=== PATIENT | male | born 1940 | race Caucasian/White ===

== ENCOUNTER 2023-04-22 13:34 | Outpatient (CLI) | payer OTHER ==
[2023-04-22 15:10] LABS: #Basophils 0.1 10x3/uL (0.0-0.2); #Eosinphils 0.3 10x3/uL (0.0-0.5); #Monocytes 0.6 10x3/uL (0.0-1.1); #Neutrophils 3.7 10x3/uL (1.5-8.4); %Basophils 1.5 % (0.0-2.0); %Eosinophils 4.2 % (0.0-6.0); %Lymphocytes 32.1 % (18.0-47.0); %Monocytes 8.6 % (0.0-10.0); %Neutrophils 53.5 % (40.0-75.0); Hematocrit 43.5 % (38.8-50.0); Hemoglobin 14.8 g/dL (13.5-17.5); Mean Corpuscular Hemoglobin 31.1 pg (27.0-33.0); Mean Corpuscular Volume 91.4 fl (81.2-95.1); Mean Platelet Volume 10.9 fl (7.4-10.4); Platelet Count 279 10x3/uL (150-450); RBC Distribution Width 14.2 % (11.5-14.5); Red Blood Cell (RBC) Count 4.76 10x6/uL (4.32-5.72); White Blood Cell (WBC) Count 6.9 10x3/uL (3.5-10.5)
[2023-04-22 15:15] LABS: ALT (SGPT) 23 U/L (8-55); AST (SGOT) 20 U/L (5-34); Albumin 4.2 g/dL (3.4-4.8); Alkaline Phosphatase 64 U/L (40-110); Anion Gap 13 mmol/L (10-20); BUN (Urea Nitrogen) 18 mg/dL (8.4-25.7); Bilirubin, Direct 0.2 mg/dL (0.1-0.3); Bilirubin, Total 0.5 mg/dL (0.2-1.2); Calc. Creatinine Clearance 0 mL/min (70-130); Calcium 9.4 mg/dL (7.8-10.44); Carbon Dioxide 28 mmol/L (23-31); Chloride 104 mmol/L (98-107); Estimated GFR 81; Globulin 2.8 g/dL (2.4-3.5); Glucose 89 mg/dL (83-110); Potassium 4.5 mmol/L (3.5-5.1); Sodium 140 mmol/L (136-145)
== END 2023-04-22 13:35 | disposition home or self-care (01) ==
LOC: LABBT 13:34
PROVIDERS: ATTEND Internal Medicine Cardiovascular Disease
DX: Z01.818 Encounter for other preprocedural examination (principal)
CPT/HCPCS: 80053; 80076; 85025; 93005; 93010

== ENCOUNTER 2023-04-24 10:12 | Day surgery (SDC) | payer OTHER ==
[2023-04-22 14:39] VITALS: BMI 27.6
[~2023-04-24 10:12] MED LIST: Iopamidol 370 76% 100 ML VIAL ONE
[2023-04-24] MEDS ORDERED: Lidocaine 1% (PF) 30 ML VIAL ONE (11:09)
[2023-04-24] MEDS ORDERED: Heparin 10,000 UNITS/ 10 ML VIAL ONE (11:09)
[2023-04-24 12:23] LABS: Cardiac Risk 2.7 (Less than 4.5)
[2023-04-24] MEDS ORDERED: fentaNYL 50 mcg/mL 1 mL Vial ONE (12:28)
[2023-04-24] MEDS ORDERED: Adenosine 6 MG/2 ML VIAL ONE (12:28)
[2023-04-24] MEDS ORDERED: Amiodarone 150 MG/3 ML VIAL ONE (12:28)
[2023-04-24] MEDS ORDERED: Midazolam HCl 2 mg/2 ml Vial ONE (12:28)
[2023-04-24] MEDS ORDERED: TICAGRELOR 90 MG TABLET ONE (13:26)
== END 2023-04-24 19:13 | disposition home or self-care (01) ==
LOC: SDC 10:12
PROVIDERS: ATTEND Internal Medicine Cardiovascular Disease
DX: I35.0 Nonrheumatic aortic (valve) stenosis (principal); I25.10 Atherosclerotic heart disease of native coronary artery without angina pectoris; R01.1 Cardiac murmur, unspecified; R55 Syncope and collapse; I44.7 Left bundle-branch block, unspecified; I10 Essential (primary) hypertension; H40.9 Unspecified glaucoma; R09.89 Other specified symptoms and signs involving the circulatory and respiratory systems; Z90.49 Acquired absence of other specified parts of digestive tract; Z98.41 Cataract extraction status, right eye; Z98.42 Cataract extraction status, left eye; F17.200 Nicotine dependence, unspecified, uncomplicated; Z79.899 Other long term (current) drug therapy; Z91.018 Allergy to other foods
CPT/HCPCS: 80061; 85347 ×2; 93005; 93454; C1769 ×4; C1874; C1887; C9600; 92928; 93456; J0153; J0282; J1644; J2001; J2250; J3010; Q9967